=== PATIENT | female | born 1965 | race Caucasian/White ===

== ENCOUNTER → 2016-11-01 | Outpatient (CLI) | payer OTHER ==
[2016-11-01 16:10] LABS: HEMOGLOBIN 12.9 gm/dl (12.3-15.3); RED BLOOD COUNT 4.22 M/UL (4.00-5.10); WHITE BLOOD COUNT 6.2 K/UL (4.5-11.0)
[2016-11-01 16:29] LABS: BUN/CREATININE RATIO 22 (0-10)
== END ==
LOC: LAB 15:19
PROVIDERS: Family Medicine
DX: E03.9 Hypothyroidism, unspecified (principal)
CPT/HCPCS: 36415; 80048; 80061; 80076; 84443; 85027

== ENCOUNTER → 2020-11-10 | Outpatient (CLI) | payer OTHER ==
[~2020-11-10] MED LIST: MACROBID 100 M100 MG PO
== END ==
LOC: EMI 08:35
DX: G93.9 Disorder of brain, unspecified (principal)
CPT/HCPCS: 70553; A9577

== ENCOUNTER → 2021-04-28 | Outpatient (CLI) | payer BC ==
[2021-04-28 10:25] LABS: GLUCOSE,CSF 71 mg/dL (50-80); TOTAL PROTEIN,CSF 34 mg/dL (20-45); WBC (AUTOMATED 1 10^3 (0-5)
[2021-05-01 18:11] LABS: MYELIN BASIC PROTEIN, CSF 6.3 ng/mL (0.0-3.7)
[2021-05-02 14:14] LABS: CSF IGG INDEX 0.7 (0.0-0.7); CSF/SERUM ALB. INDEX 4 (0-8); IMMUNOGLOBULIN G, QN, SERUM 795 mg/dL (586-1602)
== END ==
LOC: RAD 07:38
PROVIDERS: Psychiatry & Neurology Neurology
DX: G35 Multiple sclerosis (principal); I67.82 Cerebral ischemia; G43.009 Migraine without aura, not intractable, without status migrainosus; R39.15 Urgency of urination
CPT/HCPCS: 36415; 82040; 82164; 82784; 82945; 83873; 83916; 84157; 85049; 85610; 85730; 89051